=== PATIENT | female | born 1945 ===

== ENCOUNTER 2019-07-30 05:35 | Day surgery (SDC) | payer OTHER ==
[~2019-07-30 05:35] MED LIST: ATACAND16 MG PO; CALTRATE GUMMY1 EACH PO; FISH OIL 1,0001 EAC3 PO; FOLIC PO; KEFLEX500 MG PO; ROSOVASTATIN PO; SYNTHROID88 MCG PO; [UNRECOGNIZED DRUG - OTHER] PO
[2019-07-30] MEDS ORDERED: MACROBID 100 M100 MG PO (09:20)
[2019-07-30] MEDS ORDERED: ULTRACET PO (09:21)
== END 2019-07-30 12:35 | disposition home or self-care (01) ==
LOC: CIR.AMB 05:35 → ADM 11:15 → CIR.AMB 11:15
DX: N81.3 Complete uterovaginal prolapse (principal)